=== PATIENT | female | born 1975 | race Caucasian/White ===

== ENCOUNTER 2017-01-30 17:51 | Emergency (ER) | payer SELFPAY ==
[~2017-01-30] VITALS: Ht 154.9 cm; Wt 81.6 kg
[2017-01-30] MEDS ORDERED: KETOROLAC 30 MG/ML INJ. ONE (18:49)
[2017-01-30] MEDS: KETOROLAC 30 MG/ML INJ. IV ONE (18:54)
[2017-01-30 19:00] VITALS: BP 116/79
--- NOTE | 2017-01-30 19:07 | PHYS DOC ---
Past Medical History Past Medical History: Anxiety Past Surgical History: , Tubal ligation Alcohol Use: Occasionally Drug Use: None Adult General Chief Complaint Chief Complaint: CHEST PAIN HPI HPI Patient is a 41 year old female brought to the ED by EMS with the complaint of left anterior chest pain. Patient states she works at [employer]. She worked until 10:00 last night and she was moving some chairs and tables at work. She did not have any pain yesterday or last night. She woke up today about 11:00 with pain in the left side of her chest. She took some Tylenol. That has not helped. She went on to work and continued to have left-sided chest pain. She denies shortness of air. The pain is worse when she coughs, laughs, or sneezes. She has not really had any significant coughing. It also hurts when she moves her left arm, and says she can hardly move her left arm above 90. She's never had pain like this before. No cardiac history. Review of Systems Review of Systems Constitutional: Denies fever or chills [] Respiratory: Denies cough or shortness of breath [] Cardiovascular: As in history of present illness GI: Denies nausea or vomiting Musculoskeletal: As in history of present illness Integument: Denies rash or skin lesions [] Current Medications Current Medications Current Medications Medications (Trade) Dose Ordered Sig/Duncan Start Time Stop Time Status Last Admin Dose Admin Ketorolac Tromethamine (Toradol) 30 mg STK-MED ONCE 01/30/17 18:49 01/30/17 19:22 DC Allergies Allergies Allergies Coded Allergies Type Severity Reaction Last Updated Verified No Known Drug Allergies 01/30/17 No Physical Exam Physical Exam Constitutional: Well developed, well nourished, no acute distress, non-toxic appearance. Alert, appropriate, warm and dry, vital signs stable. HENT: Normocephalic, atraumatic, bilateral external ears normal, oropharynx moist, nose normal. [] Eyes: conjunctiva normal, no discharge. [] Neck: Normal range of motion, no stridor. [] Cardiovascular:Heart rate regular rhythm, no murmur [] Lungs & Thorax: Bilateral breath sounds clear to auscultation Chest wall: No overlying skin color changes, no ecchymosis, no evidence of zoster. Tender to palpation over the left pectoral muscle. No swelling, no deformity. Also patient does experience pain with active movement of her left arm. Full range of motion of the left arm which does cause pain over the left chest. Skin: Warm, dry, no erythema, no rash. [] Extremities: No tenderness, no cyanosis, no clubbing, ROM intact, no edema. [] Neurologic: Alert and oriented X 3, normal motor function, no focal deficits noted. [] Current Patient Data Vital Signs Vital Signs Date Time Temp Pulse Resp B/P (MAP) Pulse Ox O2 Delivery O2 Flow Rate FiO2 01/30/17 19:00 84 24 116/79 (91) 100 Room Air 01/30/17 17:55 97.6 97.6 EKG EKG 12-lead EKG read by me. Sinus rhythm. Heart rate 83. There are no acute ST or T wave changes indicative of ischemia or infarction. No STEMI. No rhythm disturbance. 1756[] Radiology/Procedures Radiology/Procedures Two-view chest x-ray read by me. Heart size is normal. Lung harrell are clear. No infiltrates. No bony abnormality. Course & Med Decision Making Course & Med Decision Making Pertinent Labs and Imaging studies reviewed. (See chart for details) 41-year-old female presents by EMS with left-sided chest pain that appears to be clearly musculoskeletal on exam. EKG, chest x-ray normal. The patient was given a dose of IV Toradol and stated it did help her some. I'm advising ice and ibuprofen. See instructions for plan. [] Dragon Disclaimer Dragon Disclaimer This electronic medical record was generated, in whole or in part, using a voice recognition dictation system. Departure Departure Impression: Primary Impression: Anterior chest wall pain Disposition: 01 HOME, SELF-CARE Condition: STABLE Referrals: NON,STAFF (PCP) Patient Instructions: Chest Wall Pain, [id number] Additional Instructions: I believe your pain is from the muscles of the chest wall. It does not appear to be anything serious. Use ice packs 15-20 minutes out of every 1-2 hours. Ibuprofen, take 3 or 4 of the [id number] 200 mg pills every 6-8 hours as needed for pain. JULIAN PANIAGUA MD Jan 30, 2017 19:07
--- NOTE | 2017-02-01 08:02 | EKG ---
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
== END 2017-01-30 19:22 | disposition home or self-care (01) ==
LOC: ER 17:51
DX: R07.89 Other chest pain (principal); F41.9 Anxiety disorder, unspecified; Z98.51 Tubal ligation status
CPT/HCPCS: 71020; 93005; 96374; 99284; J1885